=== PATIENT | female | born 1980 | race African-American/Black ===

== ENCOUNTER 2023-03-02 06:20 | Day surgery (SDC) | payer BC ==
[2023-02-27 10:32] VITALS: BMI 46.7
[2023-03-02] MEDS ORDERED: EPINEPHrine 1 MG/ML VIAL ONE (07:11)
[2023-03-02] MEDS ORDERED: Bupivacaine PF 0.5% 30 ML VIAL ONE (07:11)
[2023-03-02] MEDS ORDERED: Indocyanine Green 25 MG/10 ML VIAL ONE (08:10)
[2023-03-02] MEDS ORDERED: PROPOFOL 20 ML ONE (08:59)
[2023-03-02] MEDS ORDERED: Rocuronium Bromide 10 MG/ML (10ML VIAL) ONE (08:59)
[2023-03-02] MEDS ORDERED: Dexamethasone 20 MG/5 ML VIAL ONE (08:59)
[2023-03-02] MEDS ORDERED: Lidocaine 2% PF 5 ML VIAL ONE (08:59)
[2023-03-02] MEDS ORDERED: Ondansetron PF 4 MG/2 ML Vial ONE (08:59)
[2023-03-02] MEDS ORDERED: fentaNYL 50 mcg/mL 1 mL Vial ONE ×2 (09:00→10:15)
[2023-03-02] MEDS ORDERED: Ketorolac Tromethamine 30 MG (1 mL) VIAL ONE (09:06)
[2023-03-02] MEDS ORDERED: SUGAMMADEX SODIUM 200 MG/2 ML VIAL ONE (09:06)
[2023-03-02] MEDS ORDERED: KETAMINE 100 MG/ML (5ML VIAL) ONE (09:06)
[2023-03-02] MEDS ORDERED: Clindamycin/D5W 600 mg/50 ml Premix Bag ONE (09:10)
[2023-03-02] MEDS ORDERED: PHENYLEPHRINE-NS 100 MCG/ML 10 ML SYRINGE ONE (09:53)
[2023-03-02] MEDS ORDERED: Acetaminophen 325 MG TAB PO PRN (10:38)
[2023-03-02] MEDS ORDERED: HYDROcodone/Acetaminophen 5/325 mg Tablet PO PRN ×2 (10:38)
== END 2023-03-02 12:05 | disposition home or self-care (01) ==
LOC: CSHSDC 06:20
PROVIDERS: ATTEND Surgery
PROC: 0FT44ZZ Resection of Gallbladder, Percutaneous Endoscopic Approach (ICD-10-PCS; principal; 2023-03-02)
DX: K80.64 Calculus of gallbladder and bile duct with chronic cholecystitis without obstruction (principal); I10 Essential (primary) hypertension; K21.9 Gastro-esophageal reflux disease without esophagitis; M19.90 Unspecified osteoarthritis, unspecified site; F15.90 Other stimulant use, unspecified, uncomplicated; E66.01 Morbid (severe) obesity due to excess calories; Z88.0 Allergy status to penicillin; Z68.42 Body mass index [BMI] 45.0-49.9, adult; Z79.899 Other long term (current) drug therapy
CPT/HCPCS: 88304; J0171; J1100; J1885; J2001; J2405; J2704; J3010; J3490; S0020

== ENCOUNTER 2024-02-09 10:55 | Outpatient (CLI) | payer BC | END 2024-02-09 10:56 | disposition home or self-care (01) | LOC: CSHMAMMO 10:55 | PROVIDERS: ATTEND Family Medicine | DX: Z12.31 Encounter for screening mammogram for malignant neoplasm of breast (principal) | CPT/HCPCS: 77063; 77067 ==

== ENCOUNTER 2025-02-10 12:20 | Outpatient (CLI) | payer BC | END 2025-02-10 12:21 | disposition home or self-care (01) | LOC: CSHMAMMO 12:20 | PROVIDERS: ATTEND Physician Assistant | DX: Z12.31 Encounter for screening mammogram for malignant neoplasm of breast (principal) | CPT/HCPCS: 77063; 77067 ==